=== PATIENT | female | born 1970 | race Caucasian/White ===

== ENCOUNTER → 2017-07-04 | Outpatient (CLI) | payer OTHER ==
--- NOTE | 2017-07-04 11:09 | DIAGNOSTIC IMAGING REPORT ---
DOUBLE CONTRAST UPPER GI SERIES CLINICAL HISTORY: Status post gastric bypass. COMPARISON STUDY: None. FLUOROSCOPY TIME: 1.3 minutes. FINDINGS: 25 fluoroscopic images were obtained. Blueprint Cutter image demonstrates a feeding tube within the stomach. Esophageal motility is normal. No esophageal mass or stricture is identified. There are post surgical findings consistent with Branden-en-Y gastric bypass. Contrast passed freely into the jejunum. No contrast extravasation is identified. There was no opacification of the excluded stomach. Caliber of opacified jejunum was normal. Note was made of moderate gastroesophageal reflux. IMPRESSION: 1. Expected findings following Branden-en-Y gastric bypass. No leak. No obstruction. 2. Moderate gastroesophageal reflux. Electronically signed by: David Arita M.D. 07/04/2017 11:08 AM Dictated Date/Time: 07/04/2017 11:06 AM
== END | disposition home or self-care (01) ==
LOC: C.RAD 10:27
PROVIDERS: ATTEND Surgery
DX: K21.9 Gastro-esophageal reflux disease without esophagitis (principal); Z98.84 Bariatric surgery status